=== PATIENT | male | born 1930 | race Caucasian/White ===

== ENCOUNTER 2018-12-31 11:59 | Emergency (ER) | payer MEDICAID, OTHER ==
[~2018-12-31] VITALS: Ht 165.1 cm; Wt 84.0 kg
[2018-12-31 18:36] LABS: EOSINOPHILS % 2.9 % (0.0-5.0); HEMATOCRIT. 40.6 % (42.0-52.0); MEAN CORPUSCULAR HEMOGLOBIN 25.4 pg (28.0-32.0); MEAN CORPUSCULAR VOLUME 79.2 fL (80.0-94.0); MEAN PLATELET VOLUME 8.2 fl (7.4-10.4); MONOCYTES % 10.7 % (2.0-8.0); NEUTROPHILS % 55.4 % (40.0-76.0); PLATELET 263 x1000/uL (130-400); RED BLOOD CELL COUNT 5.13 mill/uL (4.7-6.1)
[2018-12-31 18:40] LABS: CHLORIDE 102 mEq/L (98-107)
[2018-12-31 18:41] LABS: INR 1.1; PARTIAL THROMBOPLASTIN TIME 42.7 sec (23.4-31.0); PROTHROMBIN TIME 10.9 sec (9.1-11.1)
[2018-12-31 18:43] VITALS: BP 153/71
== END 2018-12-31 18:55 | disposition home or self-care (01) ==
LOC: ER 12:42
DX: K06.8 Other specified disorders of gingiva and edentulous alveolar ridge (principal); D66 Hereditary factor VIII deficiency; E11.9 Type 2 diabetes mellitus without complications; E78.00 Pure hypercholesterolemia, unspecified; Z98.890 Other specified postprocedural states
CPT/HCPCS: 36415; 80053; 85025; 85610; 85730; 99283; Z7610